=== PATIENT | male | born 1950 | race Caucasian/White ===

== ENCOUNTER 2019-03-28 08:15 | Day surgery (SDC) | payer OTHER ==
[~2019-03-28] VITALS: Ht 182.9 cm; Wt 118.8 kg
[2019-03-28 09:30] VITALS: BP 138/76
[2019-03-28 18:38] VITALS: BP 147/81
== END 2019-03-28 18:30 | disposition home or self-care (01) ==
LOC: EDBD 08:15 → DS 08:15
DX: K40.30 Unilateral inguinal hernia, with obstruction, without gangrene, not specified as recurrent (principal); E66.3 Overweight; I20.9 Angina pectoris, unspecified; E11.22 Type 2 diabetes mellitus with diabetic chronic kidney disease; N18.9 Chronic kidney disease, unspecified; B19.20 Unspecified viral hepatitis C without hepatic coma; E78.00 Pure hypercholesterolemia, unspecified; Z88.0 Allergy status to penicillin; Z79.84 Long term (current) use of oral hypoglycemic drugs; Z79.899 Other long term (current) drug therapy; Z79.4 Long term (current) use of insulin; Z90.89 Acquired absence of other organs; Z68.30 Body mass index [BMI] 30.0-30.9, adult
CPT/HCPCS: 82962; C1781; J1885; J3010; J3490